=== PATIENT | male | born 2000 ===

== ENCOUNTER 2022-07-21 20:23 | Emergency (ER) | payer OTHER | END 2022-07-22 00:32 | disposition home or self-care (01) | LOC: ERS 20:23 | DX: S90.112A Contusion of left great toe without damage to nail, initial encounter (principal); F17.290 Nicotine dependence, other tobacco product, uncomplicated; W20.8XXA Other cause of strike by thrown, projected or falling object, initial encounter | CPT/HCPCS: 11740 ==